=== PATIENT | female | born 1990 | race Caucasian/White ===

== ENCOUNTER 2017-11-22 13:15 | Emergency (ER) | payer BC ==
[2017-11-22 13:22] VITALS: BP 127/88; PULSE 84; TEMP 97.9; BMI 32.5
--- NOTE | 2017-11-22 13:35 | PDOC ---
History of Present Illness - General Chief Complaint: Vaginal Bleeding Stated Complaint: 11 WKS , "CLOTS" Time Seen by Provider: 11/22/17 13:18 - History of Present Illness Initial Comments: 11/22/17 13:34 Patient is a 26 year female at a self-reported 11 weeks gestation and no reported PMH who presents to our ED c/o vaginal bleeding. Patient states she went to the bathroom and noticed bright red blood in her underwear and then while urinating passed two golf ball sized clots. Endorses mild abdominal cramping. No fevers, dysuria, prior hematuria. No current active vaginal bleed. H/o spontaneous @ 6 weeks 2-3 years previous as well as elective at age 18. Patient follow with Dr. Damon (electrical repairer) and states she was last evaluated @ 8 weeks gestation and everything was normal. NKDA Surgical: denies Social: denies toxic habits PMD: none, OB-Screening Nurse: Dr. Damon Past History - Past Medical History Allergies/Adverse Reactions: Allergies Allergy/AdvReac Type Severity Reaction Status Date / Time No Known Drug Allergies Allergy Verified 09/28/15 07:43 Home Medications: Ambulatory Orders NK [No Known Home Medication] 09/28/15 COPD: No Other medical history: pt states she is 11 wks - Reproductive History Is Patient Now?: Yes (11 wks per patient) (#): 3 Para: 0 - Immunization History Immunization Up to Date: Yes - Suicide/Smoking/Psychosocial Hx Smoking Status: No Smoking History: Never smoked Have you smoked in the past 12 months: No Number of Cigarettes Smoked Daily: 5 'Breaking Loose' booklet given: 09/28/15 Hx Alcohol Use: No Drug/Substance Use Hx: No Substance Use Type: None Review of Systems - Review of Systems Constitutional: No: Chills, Fever HEENTM: No: Blurred Vision, Double Vision Respiratory: No: Cough, Shortness of Breath Cardiac (ROS): No: Chest Pain, Lightheadedness, Palpitations, Syncope ABD/GI: Yes: Abdominal cramping. No: Constipated, Diarrhea, Nausea, Vomiting : Yes: Other (vaginal bleeding) *Physical Exam - Vital Signs Last Vital Signs Temp Pulse Resp BP Pulse Ox 97.9 F 84 18 127/88 99 11/22/17 13:15 08/05/18 13:15 11/22/17 13:15 11/22/17 13:15 11/22/17 13:15 - Physical Exam General Appearance: Yes: Nourished, Appropriately Dressed Neck: positive: Trachea midline, Supple Respiratory/Chest: positive: Lungs Clear, Normal Breath Sounds Cardiovascular: positive: S1, S2. negative: Edema, JVD Female Pelvic Exam: positive: normal external exam, normal adnexa, vaginal bleeding. negative: discharge Gastrointestinal/Abdominal: positive: Normal Bowel Sounds, Soft Musculoskeletal: negative: CVA Tenderness (R), CVA Tenderness (L) Extremity: positive: Normal Capillary Refill, Normal Inspection Integumentary: positive: Normal Color, Dry, Warm ED Treatment Course - LABORATORY CBC & Chemistry Diagram: 11/22/17 13:44 Medical Decision Making - Medical Decision Making 11/22/17 13:42 26 year old female @ self-reported 11 weeks gestation presents with vaginal bleed - bright red clots. Frontal diagnosis: spontaneous , threatened , ectopic , molar . Pelvic exam, TVUS, B-HCG, Type and Screen. Reassess. 11/22/17 14:13 Pelvic exam shows dark red blood in vaginal vault, possible small amount of tissue, closed cervical os. 11/22/17 16:24 Blood Type O Positive - no indication for Rhogam. TVUS shows IUP dated @ 8 weeks and 3 days with no FHR c/w demise. Patient and patient's family @ bedside counseled on diagnosis. Will discharge patient home with return precautions and OB-Screening Nurse follow-up. I discussed the physical exam findings, ancillary test results and final diagnoses with the patient. I answered all of the patient's questions. The patient was satisfied with the care received and felt comfortable with the discharge plan and treatment plan. The patient will return to the Emergency Department with any new, persistent or worsening symptoms. *DC/Admit/Observation/Transfer Diagnosis at time of Disposition: Miscarriage - Discharge Dispostion Disposition: HOME Condition at time of disposition: Stable Decision to Admit order: No - Referrals Referrals: Alicia Damon MD [Primary Care Provider] - Jose Bustamante MD [Staff Physician] - - Patient Instructions Printed Discharge Instructions: Dealing With Miscarriage, DI for Miscarriage Additional Instructions: Please make an appointment with Dr. Medel in the next 2-3 days. A referral has been provided to a primary care physician as well. You can take Motrin/ Tylenol for pain. Return to the Emergency Department for any new/worsening/ concerning symptoms. - Post Discharge Activity
[2017-11-22 14:13] LABS: BASO % 0.2 % (0-2.0); EOS % 1.6 % (0-4.5); HEMATOCRIT 42.4 % (32.4-45.2); LYMPH % 20.1 % (8-40); MCH 29.6 pg (25.7-33.7); MCHC 33.1 g/dl (32.0-36.0); MEAN CELL VOLUME 89.6 fl (80-96); MEAN PLT VOLUME 8.8 fl (7.5-11.1); MONO % 4.7 % (3.8-10.2); NEUT % 73.4 % (42.8-82.8); PLATELET COUNT 329 K/MM3 (134-434); RBC 4.73 M/mm3 (3.60-5.2); RDW 12.2 % (11.6-15.6)
--- NOTE | 2017-11-22 14:30 | PDOC ---
Attending Attestation - Resident Resident Name: Logan Suazoica - ED Attending Attestation I have performed the following: I have examined & evaluated the patient, The case was reviewed & discussed with the resident, I agree w/resident's findings & plan, Exceptions are as noted - HPI HPI: 11/22/17 14:35 26 year old female c/ no pmh, ~11 wks p/w vaginal bleeding starting today. Endorsed some lower abdominal cramping, but denies dysuria. Passed some blood clots, but now reports very minimal vaginal bleeding. - Physicial Exam PE: 11/22/17 14:36 GENERAL: Awake, alert, and fully oriented, in no acute distress HEAD: No signs of trauma EYES: EOMI, sclera anicteric, conjunctiva clear ENT: Auricles normal inspection, hearing grossly normal, nares patent, oropharynx clear without exudates. Moist mucosa NECK: Normal ROM, supple. ABDOMEN: nontender abdomen EXTREMITIES: Normal range of motion, no edema. No clubbing or cyanosis. No cords, erythema, or tenderness NEUROLOGICAL: Cranial nerves II through XII grossly intact. Normal speech, normal gait SKIN: Warm, Dry, normal turgor, no rashes or lesions noted. - Medical Decision Making 11/22/17 14:40 Vital Signs Temp Pulse Resp BP Pulse Ox 97.9 F 84 18 127/88 99 11/22/17 13:15 11/22/17 13:15 11/22/17 13:15 11/22/17 13:15 11/22/17 13:15 R/o spontaneous . Pelvic ultrasound. UA to r/o cystitis. Blood type to obtain Rh factor in case if patient needs rogham. 11/22/17 15:34 Ultrasound reviewed. IUP with 8 wks 3 days but no FHR. Appears to be demise. 11/22/17 15:51 Blood type O positive. CBC, BMP 11/22/17 13:44 CMP Beta HCG, Quant 8620.5 mIU/ml 11/22/17 13:44 Urine Test Results Urine Color Yellow 11/22/17 14:56 Urine Appearance Hazy 11/22/17 14:56 Urine pH 5.5 (4.5-8) 11/22/17 14:56 Ur Specific Vanderbilt <= 1.005 (1.005-1.025) 11/22/17 14:56 Urine Protein Negative (NEGATIVE) 11/22/17 14:56 Urine Glucose (UA) Negative (NEGATIVE) 11/22/17 14:56 Urine Ketones Negative (NEGATIVE) 11/22/17 14:56 Urine Blood 2+ (NEGATIVE) H 11/22/17 14:56 Urine Nitrite Negative (NEGATIVE) 11/22/17 14:56 Urine Bilirubin Negative (NEGATIVE) 11/22/17 14:56 Ur Leukocyte Esterase Negative (NEGATIVE) 11/22/17 14:56 Urine RBC 5-10 /hpf (0-3) 11/22/17 14:56 Urine WBC 2-5 (0-5) 11/22/17 14:56 Ur Epithelial Cells Few /HPF 11/22/17 14:56 Urine Bacteria Few /hpf (NEGATIVE) 11/22/17 14:56 Supportive care. Follow up with shafting worker Return precautions for worsening bleed.
[2017-11-22 15:14] LABS: PH,URINE 5.5 (4.5-8); URINE BILIRUBIN Negative (NEGATIVE); URINE COLOR Yellow; URINE GLUCOSE (UA) Negative (NEGATIVE); URINE KETONE Negative (NEGATIVE); URINE LEUK ESTERASE Negative (NEGATIVE); URINE NITRITE Negative (NEGATIVE); URINE PROTEIN Negative (NEGATIVE); URINE UROBILINOGEN 0.2 (0.2-1.0)
[2017-11-22 15:18] LABS: URINE APPEARANCE HAZY
[2017-11-22 15:27] LABS: AMORP URATES FEW /hpf (NONE SEEN); EPI CELLS FEW /HPF; URINE BACTERIA FEW /hpf (NEGATIVE)
== END 2017-11-22 16:30 | disposition home or self-care (01) ==
LOC: FER 13:15
DX: O26.891 Other specified pregnancy related conditions, first trimester (principal); O03.9 Complete or unspecified spontaneous abortion without complication; Z3A.11 11 weeks gestation of pregnancy
CPT/HCPCS: 36415; 76817-TC; 81003; 81015; 84702; 85025; 86850; 86900; 86901; 87086; 99285-25